=== PATIENT | female | born 1980 | race Caucasian/White ===

== ENCOUNTER 2017-06-29 23:10 | Emergency (ER) ==
[2017-06-29 23:22] VITALS: BP 166/95; TEMP 98.3; BMI 38.9
[2017-06-29] MEDS ORDERED: NORFLEX IM STA (23:32)
[2017-06-29] MEDS ORDERED: DECADRON 4 MG/ML SDV IM STA (23:32)
[2017-06-29] MEDS ORDERED: TORADOL IM STA (23:32)
--- NOTE | 2017-06-29 23:45 | ED.PDOC ---
General ED Provider: Dr. SUSIE KRAUS-ER Chief Complaint: Back Pain Stated Complaint: my back hurts down into my legs Time Seen by Physician: 23:15 Mode of Arrival: Walk-In Information Source: Patient Exam Limitations: No limitations Nursing and Triage Documentation Reviewed and Agree: Yes Musculoskeletal Complaint Exam - Back Pain Complaint/Exam Mechanism of Injury: Reports: No known trauma Onset/Duration: several hours Symptoms Are: Still present Timing: Constant Episodes Lasting: Hours Initial Severity: Mild Current Severity: Moderate Location: Reports: Discrete Character: Reports: Dull, Aching, Stiffness Aggravating: Reports: Movements, Lifting, Bending, Walking Alleviating: Reports: None Associated Signs and Symptoms: Denies: Swelling, Redness, Bruising, Fever, Weakness, Numbness, Tingling, Abdominal pain, Flank pain, Bladder incontinence, Bowel incontinence, Weight loss, Pain with weight bearing Related History: Reports: Similar episode, Previous back injury Cauda Equina Risk Factors: Reports: None Epidural Abcess Risk Factors: Reports: None Focal Tenderness: Yes Paraspinal Muscle Tenderness: Yes Paraspinal Muscle Spasm: No Scoliosis: No Lordosis: No Kyphosis: No SLR Test: Right Negative, Left Negative Hip Motion Testing Pain: Right Negative, Left Negative Focal Weakness: Present: None Focal Sensory Loss: Present: None Gait: Present: Abnormal Differential Diagnoses: Herniated Disk, Strain, Sprain Review of Systems - Review Of Systems Constitutional: Reports: No symptoms Eyes: Reports: No symptoms Ears, Nose, Mouth, Throat: Reports: No symptoms Respiratory: Reports: No symptoms Cardiac: Reports: No symptoms GI: Reports: No symptoms : Reports: No symptoms Musculoskeletal: Reports: Back pain Skin: Reports: No symptoms Neurological: Reports: Numbness Endocrine: Reports: No symptoms Hematologic/Lymphatic: Reports: No symptoms All Other Systems: Reviewed and Negative Past Medical History - Past Medical History Previously Healthy: Yes Endocrine: Reports: Unknown Cardiovascular: Reports: Unknown Respiratory: Reports: Unknown Hematological: Reports: Unknown Gastrointestinal: Reports: Unknown Genitourinary: Reports: Unknown Neuro/Psych: Reports: Unknown Musculoskeletal: Reports: Unknown Cancer: Reports: Unknown Last Menstrual Period: 06/08/17 - Surgical History General Surgical History: Reports: Unknown - Family History Family History: Reports: Unknown - Social History Smoking Status: Never smoker Hx Substance Use: No Alcohol Screening: Occasionally Lives: With family - Immunizations Tetanus Shot up to Date: (UNKNOWN) Physical Exam - Physical Exam Appearance: Well-appearing, No pain distress, Well-nourished Pain Distress: Moderate Eyes: GHAZAL, EOMI, Conjunctiva clear ENT: Ears normal, Nose normal, Oropharynx normal Neck: Supple Respiratory: Airway patent, Breath sounds clear, Breath sounds equal, Respirations nonlabored Cardiovascular: RRR, Pulses normal, No rub, No murmur GI/: Soft, Nontender, No masses, Bowel sounds normal, No Organomegaly Musculoskeletal: Limited ROM Skin: Warm, Dry, Normal color Neurological: Sensation intact, Motor intact, Reflexes intact, Cranial nerves intact, Alert, Oriented Psychiatric: Affect appropriate, Mood appropriate Interpretation - Radiology Interpretation Radiology Interpretation By: Radiologist Radiology Results: Positive Exam Interpreted: CT Scan Critical Care Note - Critical Care Note Total Time (mins): 0 Course - Course Orders, Labs, Meds: Orders Category Date Time Status Dexamethasone 4 mg/ml Inj [Decadron 4 mg/ml Sdv] MEDS 06/29/17 23:32 Discontinued 4 mg IM ONCE STA Ketorolac Tromethamine [Toradol] MEDS 06/29/17 23:32 Discontinued 60 mg IM ONCE STA Orphenadrine Citrate [Norflex] MEDS 06/29/17 23:32 Discontinued 60 mg IM ONCE STA CT LUMBAR SPINE W/O CONTRAST Stat RADS 06/29/17 23:32 Completed Medications Discontinued Medications Generic Name Dose Route Start Last Admin Trade Name Freq PRN Reason Stop Dose Admin Dexamethasone Sodium Phosphate 4 mg 06/29/17 23:32 06/29/17 23:59 Decadron 4 Mg/Ml Sdv IM 06/29/17 23:33 4 mg ONCE STA Administration Ketorolac Tromethamine 60 mg 06/29/17 23:32 06/29/17 23:59 Toradol IM 06/29/17 23:33 60 mg ONCE STA Administration Orphenadrine Citrate 60 mg 06/29/17 23:32 06/29/17 23:59 Norflex IM 06/29/17 23:33 60 mg ONCE STA Administration Vital Signs: Temp Pulse Resp BP Pulse Ox 06/29/17 23:12 98.3 F 112 H 20 166/95 H 99 Departure - Departure Time of Disposition: 00:10 Disposition: HOME SELF-CARE Discharge Problem: Back pain at L4-L5 level Instructions: Chronic Back Pain (ED) Condition: Good Pt referred to PMD for follow-up: Yes Additional Instructions: medrol dose pack==norco 7.5mg q 4hrs prn pain #10---f/u wtih pcp Allergies/Adverse Reactions: Allergies No Known Allergies Allergy (Verified 06/29/17 23:20) Home Medications: Ambulatory Orders 1 [No Reported Medications] 08/18/14 Disposition Discussed With: Patient
--- NOTE | 2017-06-30 00:05 | CT ---
EXAM: CT scan lumbar spine HISTORY: Low back pain COMPARISON: none FINDINGS: Contiguous axial images were obtained through the lumbar spine utilizing 3-mm collimation . Sagittal and coronal reconstructions were imaged and reviewed. Degenerate disc disease is noted at L3-L4 through L5-S1. Facet arthropathy is seen within the lower lumbar spine. There is mild levo scoliosis. At L3-L4 there is mild concentric non compressive disc bulge facet arthropathy mildly jenny rowing both neural foramen. At L4-L5 there is a spondylitic bulge with facet arthropathy narrowing t he right neural foramen.. At L5-S1 there is mild disc bulge with facet arthropathy narrowing the le ft neural foramen. IMPRESSION: Degenerate disc disease at L3-L4 through L5-S1. Multilevel neural foraminal narrowing as described.
== END 2017-06-30 00:20 | disposition home or self-care (01) ==
LOC: ED 23:10
DX: M54.5 Low back pain (principal)
CPT/HCPCS: 96372; 99283